=== PATIENT | female | born 1960 | race Caucasian/White ===

== ENCOUNTER 2018-06-01 00:45 | Emergency (ER) | payer MEDICARE, OTHER ==
[~2018-06-01] VITALS: Ht 160 cm; Wt 72.6 kg
[2018-06-01 00:52] VITALS: BP 189/102
[2018-06-01] MEDS ORDERED: KETOROLAC 60 MG/2 ML VIAL IM ONE ×2 (01:55→02:00)
[2018-06-01 02:25] VITALS: BP 171/91
== END 2018-06-01 02:25 | disposition home or self-care (01) ==
LOC: MED 00:45
DX: S91.012A Laceration without foreign body, left ankle, initial encounter (principal); S30.0XXA Contusion of lower back and pelvis, initial encounter; I25.2 Old myocardial infarction; J44.9 Chronic obstructive pulmonary disease, unspecified; E11.9 Type 2 diabetes mellitus without complications; I10 Essential (primary) hypertension; F17.200 Nicotine dependence, unspecified, uncomplicated; Y04.8XXA Assault by other bodily force, initial encounter; Y93.89 Activity, other specified; Y92.89 Other specified places as the place of occurrence of the external cause; Y99.8 Other external cause status
CPT/HCPCS: 12001; 90471; 90715; 96372; 99284; J1885